=== PATIENT | female | born 1985 | race Caucasian/White ===

== ENCOUNTER 2019-01-15 07:52 | Emergency (ER) | payer OTHER ==
[2019-01-15 08:28] VITALS: BP 118/68
--- NOTE | 2019-01-15 08:39 | UC ---
Complaint Female HPI - HPI Summary HPI Summary: 33 yo woman with 3 day history of dysuria and suprapubic pain, with onset of gross hemturia today along with persistent urgency and burning. No fever or back pain. , stable relationship, no concern about STI's. - History Of Current Complaint Chief Complaint: UCGU Stated Complaint: URINARY COMPLAINT Time Seen by Provider: 01/15/19 08:31 Hx Obtained From: Patient Hx Last Menstrual Period: Mirena IUD ?: No - Amenorrheic with IUD Onset/Duration: Gradual Onset, Lasting Days - 3 Timing: Constant Severity Initially: Mild Severity Currently: Moderate Pain Intensity: 2 Character: Burning, Cramping Aggravating Factor(s): Urination Alleviating Factor(s): Nothing Associated Signs And Symptoms: Negative: Fever, Back Pain, Vaginal Bleeding/ Discharge, Nausea Related Hx: - 2, Para - 2 - Risk Factors Ectopic Risk Factor: IUD Use Ovarian Torsion Risk Factor: Reproductive Age - Allergies/Home Medications Allergies/Adverse Reactions: Allergies Allergy/AdvReac Type Severity Reaction Status Date / Time No Known Allergies Allergy Verified 01/15/19 08:24 Home Medications: Home Medications Levonorgestrel (Iud) [Mirena IUD] 20 mcg IU ONCE 01/15/19 [History Confirmed ] PMH/Surg Hx/FS Hx/Imm Hx Previously Healthy: Yes - Surgical History Surgical History: None - Family History Known Family History: Positive: Non-Contributory - Social History Occupation: Employed Full-time - SAHM Lives: With Family Alcohol Use: glass of wine with dinner Substance Use Type: None Smoking Status (MU): Never Smoked Tobacco Review of Systems All Other Systems Reviewed And Are Negative: Yes Constitutional: Positive: Negative Skin: Positive: Negative Eyes: Positive: Negative ENT: Positive: Negative Respiratory: Positive: Negative Cardiovascular: Positive: Negative Gastrointestinal: Negative: Abdominal Pain, Nausea Genitourinary: Positive: Dysuria, Hematuria, Frequency, Urgency Motor: Positive: Negative Neurovascular: Positive: Negative Musculoskeletal: Positive: Negative Neurological: Positive: Negative Psychological: Positive: Negative Is Patient Immunocompromised?: No Physical Exam Triage Information Reviewed: Yes Appearance: Well-Appearing, No Pain Distress Vital Signs: Initial Vital Signs Temp 98.4 F 01/15/19 08:19 Pulse 85 01/15/19 08:19 Resp 16 01/15/19 08:19 BP 118/68 01/15/19 08:19 Pulse Ox 100 01/15/19 08:19 Eye Exam: Normal ENT: Positive: Pharynx normal Neck: Positive: Supple, Nontender, No Lymphadenopathy Respiratory: Positive: Lungs clear, Normal breath sounds Cardiovascular: Positive: RRR, No Murmur Abdomen Description: Positive: No Organomegaly, Soft, Other: - mild suprapubic tenderness without guarding.. Negative: CVA Tenderness (R), CVA Tenderness (L) Musculoskeletal Exam: Normal Neurological Exam: Normal Psychological Exam: Normal Skin Exam: Normal Complaint Female Dx - Course Course Of Treatment: Grossly bloody urine and symptoms consistent with bladder infection; will begin treatment with antibiotics and treat symptoms with pyridium. - Differential Dx/Diagnosis Differential Diagnosis/HQI/PQRI: Pelvic Inflammatory Disease, Renal Colic, Ureteral Stone, Urinary Tract Infection Provider Diagnosis: UTI (urinary tract infection) Discharge ED - Sign-Out/Discharge Documenting (check all that apply): Patient Departure All imaging exams completed and their final reports reviewed: No Studies - Discharge Plan Condition: Good Disposition: HOME Prescriptions: Phenazopyridine 200 mg (NF) [Pyridium 200 MG tab *] 200 mg PO TID PRN #10 tab PRN Reason: Spasms - Bladder Sulfamethox/Trimethoprim DS* [Bactrim DS 800/160 TAB*] 1 tab PO BID #10 tab Patient Education Materials: Urinary Tract Infection in Women (ED) Referrals: Prashant Cole MD [Primary Care Provider] - Additional Instructions: Urine culture has been sent and you will be notified if a change of antibiotics is needed. Take the full course of bactrim, ensuring a high intake of water. Pyridium has been prescribed to ease the burning and bladder spasm--this will turn your urine bright orange. Follow up if symptoms persist. - Billing Disposition and Condition Condition: GOOD Disposition: Home
--- NOTE | 2019-01-18 07:21 | UC ---
- Progress Note Progress Note: + urine cx, sebnsitive to bactrim she has been prescribed. Course/Dx - Diagnoses Provider Diagnoses: UTI (urinary tract infection) Discharge ED - Sign-Out/Discharge Documenting (check all that apply): Post-Discharge Follow Up All imaging exams completed and their final reports reviewed: No Studies - Discharge Plan Condition: Good Disposition: HOME Prescriptions: Phenazopyridine 200 mg (NF) [Pyridium 200 MG tab *] 200 mg PO TID PRN #10 tab PRN Reason: Spasms - Bladder Sulfamethox/Trimethoprim DS* [Bactrim DS 800/160 TAB*] 1 tab PO BID #10 tab Patient Education Materials: Urinary Tract Infection in Women (ED) Referrals: Prashant Cole MD [Primary Care Provider] - Additional Instructions: Urine culture has been sent and you will be notified if a change of antibiotics is needed. Take the full course of bactrim, ensuring a high intake of water. Pyridium has been prescribed to ease the burning and bladder spasm--this will turn your urine bright orange. Follow up if symptoms persist. - Billing Disposition and Condition Condition: GOOD Disposition: Home
== END 2019-01-15 08:52 | disposition home or self-care (01) ==
LOC: UCCORT 07:52
DX: N39.0 Urinary tract infection, site not specified (principal)
CPT/HCPCS: 87077; 87086; 87186; 99202; G0463